=== PATIENT | female | born 1990 | race Caucasian/White ===

== ENCOUNTER → 2019-02-20 15:33 | Outpatient (BNVA) | payer OTHER, SELFPAY | PROVIDERS: Family Provider Family Medicine; PCP Family Medicine; Visit Provider Obstetrics & Gynecology | DX: O20.0 Threatened abortion (principal) | CPT/HCPCS: 36415; 84702 ==

== ENCOUNTER 2019-03-21 14:42 | Outpatient (CLI) | payer OTHER, SELFPAY ==
--- NOTE | 2019-03-21 | US_ITS ---
WS: [id number] TRANSABDOMINAL PELVIC AND TRANSVAGINAL PELVIC ULTRASOUND HISTORY: POSTCOITAL BLEEDING COMPARISON: None available. Uterus: 8.0 cm x 5.2 cm x 3.5 cm. Normal anteverted uterus. No fibroid or mass. Endometrium: 1.2 cm. Minimal heterogeneity of the central endometrium may be related to menses. Endoc ervical region is otherwise normal. Right ovary: 3.2 cm x 2.7 cm x 2.4 cm. Normal size and vascularity. Left ovary: 3.2 cm x 2.6 cm x 1.6 cm. Normal size and vascularity. Trace, physiologic free fluid. US/US pelvic with transvaginal IMPRESSION: Normal pelvic ultrasound.
== END 2019-03-21 14:43 | disposition home or self-care (01) ==
LOC: RADOUTREAD 03-22 14:50
PROVIDERS: Family Provider Family Medicine; PCP Family Medicine; Visit Provider Family Medicine
DX: Z76.89 Persons encountering health services in other specified circumstances (principal)

== ENCOUNTER → 2019-12-28 15:07 | Outpatient (BNVA) | payer OTHER, SELFPAY | PROVIDERS: Family Provider Family Medicine; PCP Family Medicine; Visit Provider Nurse Practitioner Family | DX: Z20.828 Contact with and (suspected) exposure to other viral communicable diseases (principal); J06.9 Acute upper respiratory infection, unspecified | CPT/HCPCS: 87635 ==

== ENCOUNTER 2020-06-24 17:23 | Outpatient (CLI) | payer OTHER, SELFPAY ==
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
== END 2020-06-24 17:24 | disposition home or self-care (01) ==
PROVIDERS: PCP Family Medicine; Visit Provider Nurse Practitioner
DX: M25.511 Pain in right shoulder (principal); M25.531 Pain in right wrist; M54.2 Cervicalgia
CPT/HCPCS: 72040; 73000; 73030; 73110

== ENCOUNTER → 2020-07-31 14:31 | Outpatient (BNVA) | payer OTHER, SELFPAY | PROVIDERS: PCP Family Medicine; Visit Provider Nurse Practitioner Women's Health | DX: N92.6 Irregular menstruation, unspecified (principal) | CPT/HCPCS: 81025 ==

== ENCOUNTER → 2020-09-04 13:08 | Outpatient (BNVA) | payer OTHER, SELFPAY | PROVIDERS: PCP Family Medicine; Visit Provider Obstetrics & Gynecology | DX: Z34.80 Encounter for supervision of other normal pregnancy, unspecified trimester (principal) | CPT/HCPCS: 80307; 82950; 84315; 84443; 85027; 86592; 86762; 86803; 86850; 86900; 87086; 87340 ==

== ENCOUNTER → 2020-09-25 13:02 | Outpatient (BNVA) | payer OTHER, SELFPAY | PROVIDERS: PCP Family Medicine; Visit Provider Obstetrics & Gynecology | DX: Z34.90 Encounter for supervision of normal pregnancy, unspecified, unspecified trimester (principal) | CPT/HCPCS: 84315; 87491; 87591; 88175 ==

== ENCOUNTER → 2021-01-14 09:49 | Outpatient (BNVA) | payer OTHER, SELFPAY | PROVIDERS: PCP Family Medicine; Visit Provider Obstetrics & Gynecology | DX: Z34.80 Encounter for supervision of other normal pregnancy, unspecified trimester (principal) | CPT/HCPCS: 82950; 84315; 85027 ==

== ENCOUNTER 2021-01-29 20:43 | Outpatient (CLI) | payer OTHER, SELFPAY ==
[2021-01-29] VITALS (25 sets, daily range): BP systolic 104–132; BP diastolic 68–85; PULSE 71–94; TEMP 36.6; O2SAT 96–100; BMI 48.4
--- NOTE | 2021-01-29 21:08 | USR_ITS ---
PROCEDURE INFORMATION: Exam: US Biophysical Profile Without Non-Stress Test Exam date and time: 01/29/2021 9:08 PM Age: 31 years old Clinical indication: Other: Maternal HTN; ; Additional info: Elevated blood pressures TECHNIQUE: Imaging protocol: US biophysical profile without non-stress testing. COMPARISON: US OB >= 14 weeks fetus [facility] 11/13/2020 8:57 AM FINDINGS: Gestation: Single live intrauterine gestation. heart rate: heart rate 151 bpm. Placenta: Posterior placenta. No previa identified. BIOPHYSICAL PROFILE: Breathin/2 Gross body movements: 2/2 tone: 2/2 Qualitative amniotic fluid: 2/2 Biophysical Profile Score: 8/8 MATERNAL ANATOMY: Cervix: Cervical length estimated 5.5 cm, measured transabdominally. Other findings: Breech position. US/US OB BPP wo NST 21224 IMPRESSION: 1. Biophysical profile score is 8/8. 2. Single live breech position intrauterine gestation.
[2021-01-29 21:43] LABS: Basophils % 0.1 %; Eosinophils # 0.1 10^3/uL (0.0-0.8); Eosinophils % 1.4 %; Hematocrit 33.2 % (37.0-47.0); Hemoglobin 11.3 g/dL (11.5-15.3); Lymphocytes # 1.6 10^3/uL (0.8-4.8); Lymphocytes % 19.9 %; Mean Corpuscular Hemoglobin 28.8 pg (28.0-34.0); Mean Corpuscular Volume 84.7 fl (81-99); Monocytes # 0.7 10^3/uL (0.2-0.9); Monocytes % 8.4 %; Neutrophils # 5.52 10^3/uL (1.8-7.7); Neutrophils % 69.6 %; Nucleated Red Blood Cells % 0 %; Platelet Count 190 10^3/cmm (130-400); Red Blood Count 3.92 10^6/uL (4.1-5.3); Red Cell Distribution Width 13.7 % (12.1-15.1); White Blood Count 7.9 10^3/uL (4.0-10.0)
[2021-01-29 21:56] LABS: Add Urine Microscopic? YES; Bilirubin Urine Neg (Negative); Blood Urine 2+ (Negative); Glucose Urine UA Norm (Normal); Ketones Urine Negative (Negative); Leukocyte Esterase Urine 1+ (Negative); Nitrate Urine Negative (Negative); Protein Urine Neg (Negative); Specific Gravity, Urine 1.015 (1.005-1.030); Urine Appearance Clear (CLEAR); Urine Color Yellow (Yellow); Urobilinogen Urine 1 mg/dL (Negative); pH Urine 7 (5-7)
[2021-01-29 22:01] LABS: Add Urine Culture? No; Alanine Aminotransferase 18 U/L (0-33); Albumin Level 3.5 g/dL (3.5-5.2); Alkaline Phosphatase 74 IU/L (35-105); Anion Gap 17.7 (5-19); Aspartate Amino Transferase 15 U/L (0-32); Bacteria Urine TRACE /hpf; Blood Urea Nitrogen 7 mg/dL (6-20); Carbon Dioxide 18 mmol/L (22-29); Chloride 103 mmol/L (98-107); Globulin 2.5 g/dL (1.3-4.6); Glomerular Filtration Rate 145.9 mL/min (90-130); Glucose 85 mg/dL (65-115); Osmolality Calculated 277 mOsm/kg (285-295); Potassium 3.7 mmol/L (3.5-5.1); Sodium 135 mmol/L (136-145); Total Bilirubin 0.6 mg/dL (0.15-1.2); Uric Acid 3.8 mg/dL (2.4-5.7)
[2021-01-29 22:02] LABS: Urine Creatinine 56 mg/dL (28-217); Urine Protein Random 7 mg/dL
[2021-01-29 22:04] LABS: UPRO/UCREAT Ratio 0.13 mg/mg CR
== END 2021-01-29 23:07 | disposition home or self-care (01) ==
LOC: OPOB 20:44 → OBGYN 20:45
PROVIDERS: PCP Family Medicine; Visit Provider Obstetrics & Gynecology
DX: O16.9 Unspecified maternal hypertension, unspecified trimester (principal); Z3A.00 Weeks of gestation of pregnancy not specified
CPT/HCPCS: 36415; 59025; 76819; 80053; 81001; 82570; 84156; 84315; 84550; 85025; 99211

== ENCOUNTER → 2021-02-06 10:44 | Outpatient (BNVA) | payer OTHER, SELFPAY | PROVIDERS: PCP Family Medicine; Visit Provider Nurse Practitioner Women's Health | DX: Z34.90 Encounter for supervision of normal pregnancy, unspecified, unspecified trimester (principal) | CPT/HCPCS: 76816; 84315 ==

== ENCOUNTER → 2021-02-19 10:15 | Outpatient (BNVA) | payer OTHER, SELFPAY | PROVIDERS: PCP Family Medicine; Visit Provider Obstetrics & Gynecology | DX: Z34.80 Encounter for supervision of other normal pregnancy, unspecified trimester (principal) | CPT/HCPCS: 80053; 82570; 84156; 84315; 84550; 85025 ==

== ENCOUNTER → 2021-02-26 14:36 | Outpatient (BNVA) | payer OTHER, SELFPAY | PROVIDERS: PCP Family Medicine; Visit Provider Obstetrics & Gynecology | DX: Z34.90 Encounter for supervision of normal pregnancy, unspecified, unspecified trimester (principal) | CPT/HCPCS: 84315; 87081 ==

== ENCOUNTER 2021-03-10 11:02 | Inpatient (IN) | payer OTHER, SELFPAY ==
[2021-03-10] VITALS (41 sets, daily range): BP systolic 107–139; BP diastolic 71–94; PULSE 73–97; RESP 16; TEMP 36.3–36.7; BMI 48.5
--- NOTE | 2021-03-10 09:29 | US_ITS ---
WS: [id number] BIOPHYSICAL PROFILE AMNIOTIC FLUID HISTORY: headache COMPARISON: 03/05/2021 Cardiac activity: 153 bpm. Cervix: closed. Placenta: Fundal and posterior, no previa or abruption. Placenta grade: 1. Parameters are as follows: Breathin Movement: 2 Tone: 2 Fluid volume: 2 Amniotic fluid index: 13.0 cm. Largest vertical pocket of amniotic fluid 4.2 cm. US/US OB BPP wo NST [id number] IMPRESSION: 1. Biophysical profile score: 8/8. 2. Normal amniotic fluid index.
[2021-03-10 10:00] LABS: Basophils % 0.2 %; Eosinophils # 0.1 10^3/uL (0.0-0.8); Eosinophils % 1.9 %; Hematocrit 35.7 % (37.0-47.0); Hemoglobin 11.9 g/dL (11.5-15.3); Lymphocytes # 1.2 10^3/uL (0.8-4.8); Mean Corpuscular HGB Conc 33.3 g/dL (30.0-36.0); Mean Corpuscular Hemoglobin 28.1 pg (28.0-34.0); Mean Corpuscular Volume 84.2 fl (81-99); Monocytes # 0.3 10^3/uL (0.2-0.9); Monocytes % 7.2 %; Neutrophils # 2.65 10^3/uL (1.8-7.7); Neutrophils % 61.8 %; Nucleated Red Blood Cells % 0 %; Platelet Count 165 10^3/cmm (130-400); Red Blood Count 4.24 10^6/uL (4.1-5.3); Red Cell Distribution Width 13.7 % (12.1-15.1); White Blood Count 4.3 10^3/uL (4.0-10.0)
[2021-03-10 10:22] LABS: Alanine Aminotransferase 29 U/L (0-33); Albumin Level 3.2 g/dL (3.5-5.2); Alkaline Phosphatase 111 IU/L (35-105); Aspartate Amino Transferase 25 U/L (0-32); Blood Urea Nitrogen 7 mg/dL (6-20); Calcium 8.4 mg/dL (8.5-10.5); Carbon Dioxide 17 mmol/L (22-29); Chloride 103 mmol/L (98-107); Globulin 2.7 g/dL (1.3-4.6); Glomerular Filtration Rate 145.9 mL/min (90-130); Glucose 102 mg/dL (65-115); Osmolality Calculated 276 mOsm/kg (285-295); Sodium 134 mmol/L (136-145); Total Bilirubin 0.4 mg/dL (0.15-1.2); Total Protein 5.9 g/dL (6.6-8.7)
[2021-03-10 10:48] LABS: Urine Creatinine 26 mg/dL (28-217); Urine Protein Random 8 mg/dL
[2021-03-10 10:51] LABS: UPRO/UCREAT Ratio 0.31 mg/mg CR
[2021-03-10] MEDS: dextrose 5%-lactated ringers 1,000 ML 125 ML IV (12:15)
[2021-03-10] MEDS: magnesium sulfate premix 4 GM/100 ML PREMIX IV (12:16)
[2021-03-10] MEDS: magnesium sulfate premix 20 GM/500 ML BAG IV ×2 (12:17→21:17)
[2021-03-10] MEDS: miSOPROStol 100 mcg tablet 25 MCG VAGINAL ×3 (13:00→23:00)
[2021-03-10] MEDS: acetaminophen 325 mg Tablet 650 MG PO (14:26)
[2021-03-10] MEDS: betamethasone susp 6 mg/mL 5 mL 12 MG IM (18:15)
[2021-03-10 18:48] LABS: Magnesium Level (OB Only) 4.3 mg/dL (5.0-7.5)
[2021-03-10] MEDS: promethazine 25 mg/mL SDV 1 mL IM (23:10)
[2021-03-10] MEDS: morphine 4 mg/mL SDV 1 mL 8 MG IM (23:11)
[2021-03-10 23:14] LABS: Magnesium Level (OB Only) 4.9 mg/dL (5.0-7.5)
[2021-03-11] VITALS (52 sets, daily range): BP systolic 108–176; BP diastolic 59–111; PULSE 69–96; RESP 18; TEMP 36.3–36.9
[2021-03-11] MEDS: dextrose 5%-lactated ringers 1,000 ML 75 ML IV (00:54)
[2021-03-11 01:16] LABS: Adenovirus Not Detected (NOT DETECT); Chlamydia Pneumoniae Not Detected (NOT DETECT); Coronavirus 229E,HKU1,NL63,OC4 Not Detected (NOT DETECT); Human Metapneumovirus Not Detected (NOT DETECT); Human Rhinovirus/Enterovirus Not Detected (NOT DETECT); Influenza A Not Detected (NOT DETECT); Influenza A H1 Not Detected (NOT DETECT); Influenza A H1-2009 Not Detected (NOT DETECT); Influenza A H3 Not Detected (NOT DETECT); Influenza B Not Detected (NOT DETECT); Mycoplasma Pneumoniae Not Detected (NOT DETECT); Parainfluenza Virus Type 1 Not Detected (NOT DETECT); Parainfluenza Virus Type 2 Not Detected (NOT DETECT); Parainfluenza Virus Type 3 Not Detected (NOT DETECT); Parainfluenza Virus Type 4 Not Detected (NOT DETECT); Respiratory Syncytial Virus A Not Detected (NOT DETECT); Respiratory Syncytial Virus B Not Detected (NOT DETECT); SARS-COV-2 Detected (NOT DETECT)
[2021-03-11 02:43] LABS: Magnesium Level (OB Only) 4.9 mg/dL (5.0-7.5)
[2021-03-11] MEDS: oxytocin 30 UNIT/500 ML BAG IV (05:35)
--- NOTE | 2021-03-11 06:27 | PM.OPHPUD ---
Labor & Delivery H&P Update Date of Procedure: March 11, 2021 Date H&P Performed: 03/10/21 Changes to previous documentation: Patient diagnosed preeclampsia based on a protein creatinine ratio of 0.31. Diagnosed with preeclampsia with severe features because of persistent headache despite Tylenol and this was diagnosed by Dr. Maddox and induction was started at 36 weeks and 5 days gestation. She did receive a dose of steroids. Admission Diagnosis:
[2021-03-11] MEDS: magnesium sulfate premix 20 GM/500 ML BAG IV ×3 (07:23→23:34)
[2021-03-11 07:25] LABS: Magnesium Level (OB Only) 5.4 mg/dL (5.0-7.5)
[2021-03-11] MEDS: fentaNYL 50 mcg/mL INJ 2mL 25 MCG IVP (13:48)
--- NOTE | 2021-03-11 17:01 | P.PN_ITS ---
Subjective Subjective: Interval history: Subjective- Ms. Lagos is a 31-year-old 3 para 1-0-1-1 at 36 weeks and 6 days. She was sent to labor and delivery after routine clinic visit on 03/10/2021 as she had reported a persistent headache that had not resolved despite Tylenol. She already had a diagnosis of gestational hypertension diagnosed at 34 weeks but did not have any severe features. Given her persistent headache was concerning for severe features she was sent to labor and delivery. Dr. Maddox who was on-call evaluated the patient and overall lab work was normal except for elevated protein creatinine ratio at 0.31 consistent with preeclampsia and given her headache was a severe symptom it was recommended by Dr. Maddox to have patient stay and get induced. Patient was placed on magnesium sulfate for seizure prophylaxis, Hirsch catheter was placed and SCD was placed. Magnesium was titrated until magnesium levels were in the therapeutic range. Induction was started with Cytotec the first dose placed at noon on 03/10/2021. Cervix was 1 cm, 40%, moderate and -3 to -4 station. tracing was category 1 and she had no contractions. With the first dose of Cytotec she did not make any cervical change and a second dose of Cytotec was placed at 5:30 PM on 03/10/2021. Covid testing was done and she was noted to be Covid positive and was placed on isolation. At 9:30 PM she had again not made any cervical change. She received a fourth dose of Cytotec vaginally. At 2 AM on 03/11/2021 she had made some cervical change to 2 cm 70% and -3 station and was having irregular contractions. She was observed for 2 hours and made some cervical change to 3 cm 75% but made no further cervical change. Contractions spaced out to every 5 to 7 minutes. She was started on Pitocin at 5:30 AM on 03/11/2021 for dose and was titrated to a maximum of 19 mIU. At 8:30 AM she was 4 cm 75% and -2 station. Artificial rupture of membranes was done at this time with clear fluid. Objective- Blood pressure--135/90 mmHg Pulse-83 beats per minute Temperature-98 Fahrenheit Abdomen-gravid, nontender, obese Sterile vaginal exam-4 cm, 75% -2 station-artificial rupture of membranes was performed-clear fluid EFM-145, moderate variability, accelerations present, no decelerations [place]-contractions every 3 to 5 minutes. Assessment: 31-year-old 3 para 1-0-1-1 at 36 weeks and 6 days Induction of labor for preeclampsia with severe features Covid positive GBS negative Morbid obesity with a BMI of 48.5 Anxiety and depression on medication Plan: Continue Pitocin. Repeat cervical exam in 2 hours. Pain medication as needed Continuous EFM and tocometry Continue SCDs for DVT prophylaxis Continue magnesium for seizure prophylaxis with magnesium level every 6 hours Covid positive-isolation precautions Vitals/I&O/Wt Last Vital Signs Temp 97.4 F L 03/10/21 14:28 Pulse 80 03/11/21 16:31 Resp 18 03/11/21 13:48 BP 148/93 03/11/21 16:31 03/11/21 03/11/21 03/11/21 06:59 14:59 22:59 Intake Total 185.667 / 1635.667 500 / 500 500 / 1000 Output Total 2350 / 5370 1435 / 1435 Balance -2164.333 / -3734.333 -935 / -935 500 / -435 Weight last 48 hrs Weight 310 lb Weight 310 lb Physical Exam Urinary Catheter Management: Hirsch: Cath Placed During This Visit: yes Reason for Continuing Indwelling Catheter: Required Immobilization for Trauma or Surgery or Anesthesia Urinary Catheter Date of Insertion: 03/10/21 Urinary Catheter Time of Insertion: 12:40 Data : 03/10/21 09:45 03/10/21 09:45 Attestations Medical Necessity Statement*: Patient will need to stay for 1-2 more midnights for delivery and recovery Coding Level of Care Code Acute Cash Application Representative for Quan Rayna
[2021-03-11] MEDS: ampicillin 2,000 MG in sodium chloride 0.9% (plus) 50 ML 100 MG IV (17:51)
[2021-03-11] MEDS: labetalol 5 mg/mL SDV 20mL 20 MG IVP (17:51)
[2021-03-11] MEDS: fentaNYL 50 mcg/mL INJ 2mL IVP (17:52)
[2021-03-11] MEDS: dextrose 5%-lactated ringers 1,000 ML 62.5 ML IV (19:20)
[2021-03-11] MEDS: betamethasone susp 6 mg/mL 5 mL 12 MG IM (19:22)
[2021-03-11 20:26] LABS: Magnesium Level (OB Only) 6.3 mg/dL (5.0-7.5)
[2021-03-11] MEDS: ampicillin 1,000 MG in sodium chloride 0.9% (plus) 50 ML 100 MG IV (21:50)
[2021-03-12] VITALS (90 sets, daily range): BP systolic 120–185; BP diastolic 60–104; PULSE 66–102; RESP 16–17; TEMP 36.7–37.1; O2SAT 98–100
[2021-03-12] MEDS: ampicillin 1,000 MG in sodium chloride 0.9% (plus) 50 ML 100 MG IV ×5 (02:01→17:58)
[2021-03-12 03:02] LABS: Magnesium Level (OB Only) 6.7 mg/dL (5.0-7.5)
[2021-03-12] MEDS: oxytocin 30 UNIT/500 ML BAG IV (06:55)
[2021-03-12] MEDS: magnesium sulfate premix 20 GM/500 ML BAG IV ×2 (07:47→15:54)
[2021-03-12 08:43] LABS: Magnesium Level (OB Only) 7.1 mg/dL (5.0-7.5)
[2021-03-12] MEDS: fentaNYL 50 mcg/mL INJ 2mL IVP (13:42)
[2021-03-12 15:07] LABS: Magnesium Level (OB Only) 6.5 mg/dL (5.0-7.5)
--- NOTE | 2021-03-12 16:07 | ANES.PREANE2 ---
Pre-Anesthetic Assessment Height/Weight: Height 1.7 m Weight 140.614 kg Temp Pulse Resp BP 98.1 F 91 17 133/95 03/12/21 06:05 03/12/21 15:42 03/12/21 13:42 03/12/21 15:42 Was Beta Zhang taken within 24 hours: N/A Was Clonidine taken within 24 hours: N/A Social No alcohol and No tobacco Exam alert, oriented x 3, clear to auscultation bilaterally and regular rate & rhythm Airway Submandibular: within normal limits Cervical ROM: within normal limits Mallampati: Class I Dentition: full Pulmonary None reported CV/HEM Pre eclampsia on magnesium None reported Hepatic None reported GI None reported Metabolic Morbid Obesity Musc/skel None reported Neuropsych Anxiety Anesthetic Plan ASA status: 3 (Morbidly obese female with severe pre eclampsia) Anesthesia: Anesthesia Evaluation, Eval. for regional block and Regional (specify below) Risk of > 500 ml blood loss (7ml/kg in children): No Medications/Allergies Home Medications Medication Instructions Recorded Confirmed Last Taken Type prenat.vits,duong,urm-oaqh-yvaoc 1 tab PO DAILY 07/31/20 03/10/21 01/29/21 08:00 History fluoxetine 20 mg capsule (Prozac) 20 mg PO DAILY #30 cap 02/19/21 03/10/21 Unknown Rx Allergies Allergy/AdvReac Type Severity Reaction Status Date / Time latex Allergy heat rash Verified 03/10/21 08:26 Current Medications Generic Name Dose Route Start Last Admin Trade Name Freq PRN Reason Stop Dose Admin Acetaminophen 650 mg 03/10/21 11:20 03/10/21 14:26 Acetaminophen 325 Mg Tablet PO 650 mg Q6H PRN Administration Mild pain or temp > 100.4 Fentanyl 25 - 100 mcg 03/11/21 17:32 03/12/21 13:42 Fentanyl 50 Mcg/Ml Inj 2ml IVP 50 mcg Q1H PRN Administration SEVERE PAIN Dextrose/Lactated Ringer's 1,000 mls @ 125 mls/hr 03/10/21 11:30 03/12/21 14:12 Dextrose 5%-Lactated Ringers IV Not Given .Q8H DEBBIE Magnesium Sulfate 20 gm in 500 mls @ 50 mls/hr 03/10/21 11:30 03/12/21 15:54 Magnesium Sulfate Premix IV 62.5 mls/hr .Q10H DEBBIE Administration Ampicillin Sodium 1,000 mg/ 50 mls @ 100 mls/hr 03/11/21 21:45 03/12/21 13:43 Sodium Chloride IV 100 mls/hr Q4H DEBBIE Administration Protocol Oxytocin 30 unit in 500 mls @ 1 mls/hr 03/12/21 07:00 03/12/21 15:30 Pitocin IV 23 milliunit/min .Q24H DEBBIE 23 mls/hr Titration Protocol 1 MILLIUNIT/MIN Labetalol HCl 20 mg 03/10/21 11:20 03/11/21 17:51 Labetalol 5 Mg/Ml Sdv 20ml IVP 20 mg PRN PRN Administration HYPERTENSION Protocol Misoprostol 25 mcg 03/10/21 12:50 03/10/21 23:00 Misoprostol 100 Mcg Tablet VAGINAL 25 mcg ONCE PRN Administration Induction Misoprostol 25 mcg 03/10/21 17:12 03/10/21 17:22 Misoprostol 100 Mcg Tablet VAGINAL 25 mcg Q4H PRN Administration Induction PFSH Anesthesia Medical History Anxiety and depression Was on fluoxetine with her in 2016. Reports being on Pristique from 2019 until May 2020 when she discontinued the medication. This was managed by her primary care provider. She does not have a therapist. No pertinent past medical history Denies diabetes, asthma, hypertension, seizures, DVT/PE PCP: Dr. Nguyen Surgical History No pertinent past surgical history Family History Grandmother Breast cancer Maternal--dx age 40's Ovarian cancer Maternal--dx age late 50's Father Hypercholesteremia Mother Ovarian cancer dx age 42 Denies family history of Colon cancer Diabetes Heart disease Hypertension Uterine cancer Thyroid disease Stroke Female Reproductive History : 3 Data Anesthesia : 03/10/21 09:45 03/10/21 09:45 COVID Results 03/10/21 23:16 Coronavirus 229E (PCR) Not detected SARS-CoV-2 (PCR) Detected A Cardiac Studies: No Data to Display
--- NOTE | 2021-03-12 17:05 | ANES.PROC ---
Anesthesia Procedures Procedure/Date: 03/12/21 Epidural: Time Out Performed: Yes ([id number]) Consents Signed: Procedure Consent Consent: from patient Lumbar Level: L3-L4 Epidural position: sitting Epidural procedure: sterile prep of area, 1% lidocaine to numb the area, 18 g needle, neg for paresthesia, test dose given, 1.5% xylocaine 1:200k epi, 0.2% Ropivacaine bolus ml, placed PCEA, no systemic response, sterile dressing applied and 0.2% Ropiavacaine @ mls/hr (13) Additional Comments: Patient sitting, time out. Prepped draped usual fashion. LA infiltration skin wheel. Touhy inserted with stylet. Using SARAH technique w/ saline space found. Catheter threaded. Positive aspiration. Catheter and Tuohy removed intact. Catheter flushed with sterile saline. Same site, Tuohy inserted with stylet. Using SARAH epidural space encountered at 7.5 cm, catheter threaded to 14 cm. Negative aspiration, negative test dose. Tolerated well.
[2021-03-12] MEDS: miSOPROStol 200 mcg Tablet 800 MCG PR (18:44)
--- NOTE | 2021-03-12 19:05 | P.PCNOB_ITS ---
Delivery Note: Date of delivery: March 12, 2021 Pre-delivery diagnoses: Term . Gestational hypertension. Post-delivery diagnoses: Term delivered. Gestational hypertension. hemorrhage. Procedure: Spontaneous vaginal delivery Delivering Physician: Tobi Brown MD Estimated blood loss (mL): 1,000 Pre-Delivery Course: Ms. Lagos is a 31-year-old 3 para 1-0-1-1 at 36 weeks and 6 days.? Admitted to labor and delivery for induction due to preeclampsia with severe features. Cytotec was given for cervical ripening, and follow-up with oxytocin. She had a slow progression and oxytocin was stopped overnight and restarted the following morning. Then she had a adequate progression of labor. Delivery: The patient was noted to be complete and pushing, so was placed in the dorsal lithotomy position, prepped and draped in the usual sterile fashion for a vaginal delivery. Pt. Noted to have epidural anesthesia. The patient delivered a viable term female weighing 2585 g with scores of 8 and 9 at one and five minutes, respectively. The vertex was delivered spontaneously over an intact perineum. The patient was asked to push and the head delivered spontaneously in the occipitus posterior position, over an intact perineum. A nuchal cord was checked and none noted. The anterior shoulder delivered easily and the posterior shoulder followed. The remainder of the was easily delivered and the oropharynx and nasopharynx was bulb suctioned. The infant was noted to have spontaneous cry and spontaneous movement of all four extremities. The cord was clamped x 2 and cut and noted to have 2 arteries and one vein. The infant was passed to the mother's abdomen where nursing personnel were in attendance. Cord blood sample was then obtained. The placenta delivered intact spontaneously and the uterus was explored. 20 units of Pitocin was placed in the IV bag to firm the uterus. Examination of the cervix and vaginal vault did not reveal any lacerations. A vaginal pack was then placed. Patient continued with significant bleeding and 800 mcg misoprostol were given intrarectally. Examination of the perineum showed a second-degree laceration. The laceration was repaired with 2-0 Vicryl and 3-0 Vicryl in the normal fashion in a running non locking fashion to reapproximate the laceration in layers. Bleeding from the suture line was also noted and tranexamic acid was also given. The vaginal pack was then removed. The patient tolerated this procedure well, and recovered in L&D with her in their LDR room. All sponge and needle counts were correct. 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
[2021-03-12] MEDS: oxytocin 30 UNIT/500 ML BAG 600 UNIT IV (19:29)
[2021-03-12 21:18] LABS: Basophils % 0.2 %; Hematocrit 34.5 % (37.0-47.0); Hemoglobin 11.5 g/dL (11.5-15.3); Lymphocytes # 0.7 10^3/uL (0.8-4.8); Mean Corpuscular HGB Conc 33.3 g/dL (30.0-36.0); Mean Corpuscular Volume 86.9 fl (81-99); Monocytes # 0.5 10^3/uL (0.2-0.9); Monocytes % 4.1 %; Neutrophils # 10.89 10^3/uL (1.8-7.7); Neutrophils % 88.3 %; Nucleated Red Blood Cells % 0 %; Platelet Count 243 10^3/cmm (130-400); Red Blood Count 3.97 10^6/uL (4.1-5.3); Red Cell Distribution Width 13.9 % (12.1-15.1); White Blood Count 12.3 10^3/uL (4.0-10.0)
[2021-03-12 21:41] LABS: Magnesium Level (OB Only) 7.1 mg/dL (5.0-7.5)
[2021-03-12] MEDS: ibuprofen 800 mg tablet PO (22:37)
[2021-03-12] MEDS: HYDROcodone-acetaminophen 5-325 mg Tablet PO (22:37)
[2021-03-13] VITALS (74 sets, daily range): BP systolic 111–160; BP diastolic 55–101; PULSE 64–162; RESP 17; TEMP 36.3–36.9
[2021-03-13] MEDS: magnesium sulfate premix 20 GM/500 ML BAG IV ×2 (00:45→10:33)
[2021-03-13 03:32] LABS: Magnesium Level (OB Only) 6.6 mg/dL (5.0-7.5)
[2021-03-13] MEDS: dextrose 5%-lactated ringers 1,000 ML 125 ML IV (06:50)
[2021-03-13] MEDS: docusate sodium 100 mg Capsule PO ×2 (09:19→17:26)
[2021-03-13] MEDS: ibuprofen 800 mg tablet PO ×3 (09:19→21:35)
[2021-03-13] MEDS: prenatal vitamin Capsule 1 CAP PO (09:19)
[2021-03-13 10:53] LABS: Magnesium Level (OB Only) 6.8 mg/dL (5.0-7.5)
[2021-03-13 11:34] LABS: Hematocrit 29.6 % (37.0-47.0); Hemoglobin 10.1 g/dL (11.5-15.3); Mean Corpuscular HGB Conc 34.1 g/dL (30.0-36.0); Mean Corpuscular Hemoglobin 28.5 pg (28.0-34.0); Mean Corpuscular Volume 83.6 fl (81-99); Mean Platelet Volume 9.9 fL (7.4-10.4); Platelet Count 206 10^3/cmm (130-400); Red Blood Count 3.54 10^6/uL (4.1-5.3); Red Cell Distribution Width 14.2 % (12.1-15.1); White Blood Count 7.7 10^3/uL (4.0-10.0)
[2021-03-13 16:23] LABS: Magnesium Level (OB Only) 6.7 mg/dL (5.0-7.5)
[2021-03-13] MEDS: dextrose 5%-lactated ringers 1,000 ML 63 ML IV (20:58)
[2021-03-13 22:05] LABS: Magnesium Level (OB Only) 5.4 mg/dL (5.0-7.5)
[2021-03-14 04:20] VITALS: BP 140/67; PULSE 72; TEMP 36.2
--- NOTE | 2021-03-14 07:52 | PC.NURSE ---
1045 03/13/21 UNABLE TO DRAW BLOOD OFF IV SITE,IV REMOVED WITH CATH INTACT.
--- NOTE | 2021-03-14 08:21 | P.DS_ITS ---
Discharge Providers CLINICAL PSYCHOLOGIST LICENSED Date of Admission: 03/10/21 11:02 Date of Discharge: 03/14/21 Attending Provider at Admission: Dr. Gutiérrez Attending Provider at Discharge: Tobi Brown MD Primary CLINICAL PSYCHOLOGIST LICENSED: Dr. Gutiérrez Primary Care Provider: Gabriele Nguyen MD Diagnoses at Discharge Discharge Diagnosis (1) Term delivered: Status: Acute (2) Gestational hypertension: Status: Acute Reason for Visit Reason for Visit: headache Brief History: Mrs. Lagos 31-year-old female with term admitted for induction due to gestational hypertension Hospital Course Hospital Course Mrs. Lagos 31-year-old female admitted to labor and delivery due to gestational hypertension. Upon admission she refused to be in attendance by the prior provider concrete curer from the practice. She never had met the provider or have had any prior interactions with the provider. She was asked if she was firing our practice, but her reply was that she does not want to be seen old being taken care of by the provider concrete curer. She was also reminded of practice policy regarding delivery by the provider concrete curer from the practice. She was tarted on oxytocin by primary OB provider She progress slowly/without adequate contractions and oxytocin was discontinue overnight and restarted the following morning, then she received an epidural anesthesia and she progressed adequately to have a spontaneous vaginal delivery without complications. Magnesium sulfate was continued for an additional 24 hours for seizure prophylaxis. Then she had adequate diuresis. observation was uneventful. She is afebrile and hemodynamically stable. Tolerating diet well. Ambulating without difficulty. Passing flatus. Instructed to follow-up with Dr. Gutiérrez at the 6-week visit. Information Peripartum Data: Infant Delivery Method: Vaginal Physical Exam Narrative: EXAM NARRATIVE: GA; alert and oriented x 3 HEENT: normal Breasts: engorged Nipples - skin intact Lungs; clear to auscultation Heart: regular rhythm, no murmurs. Abd: Appropriately tender. BS+. Uterine fundus below umbilicus. No Fundal Tenderness. Perineum: normal lochia. Extremities: no edema, no cyanosis, no tenderness. Urinary Catheter Management: Hirsch: Cath Placed During This Visit: yes, but has since been removed by the nurse Reason for Continuing Indwelling Catheter: Decision to DC Catheter Urinary Catheter Date of Insertion: 03/12/21 Urinary Catheter Time of Insertion: 19:10 Date Urinary Catheter Removed: 03/13/21 Time Urinary Catheter Discontinued: 19:45 History History History 3 Term 1 Miscarriages/Ectopic 1 0 Living Children 1 Discharge Data Studies Completed and Pending Completed Studies During Hospitalization Category Date Time Status US OB BPP wo NST 27753 Routine Ultrasound 03/10/21 09:29 Completed Radiology Impressions Obstetrics US/Biophysical Profile 03/10/21 09:29 IMPRESSION: 1. Biophysical profile score: 8/8. 2. Normal amniotic fluid index. Laboratory Results WBC 7.7 10^3/uL (4.0-10.0) 03/13/21 10:45 Corrected WBC Cancelled 03/13/21 08:45 RBC 3.54 10^6/uL (4.1-5.3) L 03/13/21 10:45 Hgb 10.1 g/dL (11.5-15.3) L 03/13/21 10:45 Hct 29.6 % (37.0-47.0) L 03/13/21 10:45 MCV 83.6 fl (81-99) 03/13/21 10:45 MCH 28.5 pg (28.0-34.0) 03/13/21 10:45 MCHC 34.1 g/dL (30.0-36.0) 03/13/21 10:45 RDW 14.2 % (12.1-15.1) 03/13/21 10:45 Plt Count 206 10^3/cmm (130-400) 03/13/21 10:45 MPV 9.9 fL (7.4-10.4) 03/13/21 10:45 Neut % (Auto) 88.3 % 03/12/21 20:15 Lymph % (Auto) 6.0 % 03/12/21 20:15 Vance % (Auto) 4.1 % 03/12/21 20:15 Eos % (Auto) 0.0 % 03/12/21 20:15 Baso % (Auto) 0.2 % 03/12/21 20:15 Neut # (Auto) 10.89 10^3/uL (1.8-7.7) H 03/12/21 20:15 Lymph # (Auto) 0.7 10^3/uL (0.8-4.8) L 03/12/21 20:15 Vance # (Auto) 0.5 10^3/uL (0.2-0.9) 03/12/21 20:15 Eos # (Auto) 0.0 10^3/uL (0.0-0.8) 03/12/21 20:15 Baso # (Auto) 0.0 10^3/uL (0.0-0.1) 03/12/21 20:15 Nucleated RBC % (auto) 0 % 03/12/21 20:15 Nucleated RBCs # 0.0 /100WBC 03/12/21 20:15 Sodium 134 mmol/L (136-145) L 03/10/21 09:45 Potassium 4.0 mmol/L (3.5-5.1) 03/10/21 09:45 Chloride 103 mmol/L (98-107) 03/10/21 09:45 Carbon Dioxide 17 mmol/L (22-29) L 03/10/21 09:45 Anion Gap 18.0 (5-19) 03/10/21 09:45 BUN 7 mg/dL (6-20) 03/10/21 09:45 Creatinine 0.5 mg/dL (0.5-0.9) 03/10/21 09:45 GFR Calculation 145.9 mL/min (90-130) H 03/10/21 09:45 Glucose 102 mg/dL (65-115) 03/10/21 09:45 Calculated Osmolality 276 mOsm/kg (285-295) L 03/10/21 09:45 Calcium 8.4 mg/dL (8.5-10.5) L 03/10/21 09:45 Magnesium 5.4 mg/dL (5.0-7.5) 03/13/21 21:35 Total Bilirubin 0.4 mg/dL (0.15-1.2) 03/10/21 09:45 AST 25 U/L (0-32) 03/10/21 09:45 ALT 29 U/L (0-33) 03/10/21 09:45 Alkaline Phosphatase 111 IU/L (35-105) H 03/10/21 09:45 Total Protein 5.9 g/dL (6.6-8.7) L 03/10/21 09:45 Albumin 3.2 g/dL (3.5-5.2) L 03/10/21 09:45 Globulin 2.7 g/dL (1.3-4.6) 03/10/21 09:45 U Random Total Protein 8 mg/dL 03/10/21 10:20 Urine Creatinine 26 mg/dL (28-217) L 03/10/21 10:20 Protein/Creatinin Ratio 0.31 mg/mg CR 03/10/21 10:20 Coronavirus 229E (PCR) Not detected (NOT DETECT) 03/10/21 23:16 SARS-CoV-2 (PCR) Detected (NOT DETECT) A 03/10/21 23:16 Vitals Last Vital Signs Temp 97.2 F L 03/14/21 04:20 Pulse 72 03/14/21 04:20 Resp 17 03/13/21 17:30 BP 140/67 03/14/21 04:20 Pulse Ox 98 03/12/21 16:37 Discharge Plan Discharge Patient Disposition: Home Condition: Stable Prescriptions: New acetaminophen 325 mg capsule 325 mg PO Q4H PRN (Reason: fever or pain) Qty: 60 0RF docusate sodium [Colace] 100 mg capsule 100 mg PO BID Qty: 30 0RF ferrous sulfate [Iron (ferrous sulfate)] 325 mg (65 mg iron) tablet 325 mg PO BID Qty: 60 0RF ibuprofen 800 mg tablet 800 mg PO TID PRN (Reason: pain) Qty: 60 0RF Continued prenat.vits,duong,dqa-ksar-trnco Tablet 1 tab PO DAILY 0RF fluoxetine [Prozac] 20 mg capsule 20 mg PO DAILY Qty: 30 3RF Discharge Orders: Discharge Order (Routine); Ordered 03/14/21 Ordered By: Tobi Brown Referrals: Dangelo Celeste MD [Physician] - 6 Weeks Discharge Diet: Regular Discharge Activity: Limit activity as instructed Patient Instructions: Opioid Safety, Hypertension During (GEN), Vaginal Delivery (GEN) Activity Restrictions/Additional Instructions: 1. Please call [facility] on next working day to make your appointment in [address] gutiérrez. 2. Please stay home until you come back to the clinic on first post-operative check up. 3. Please follow instructions on your medications CAREFULLY. 4. If you have abdominal incision, do not cover it unless dressing is necessary because of drainage. OK to shower, but avoid bath. Leave steri-strips until they fall off. If they are still on one week after surgery, you may remove them. 5. If you had vaginal surgery or vaginal repair, Dr. Brown may instruct you to take SITZ bath. 6. Yellow, blood tinged odorous vaginal discharge is usually normal after hysterectomy or vaginal surgeries. 7. No sexual intercourse, tampons, or douches until you are completely released from the post-operative care. 8. Avoid constipation by eating right and maybe using some Metamucil or Milk of Magnesia. 9. All prescription refills are given during the working hours. Please do no wait till it runs out. Call the clinic at [phone] before your medication runs out. The clinic will get in touch with your doctor to prescribe medications if necessary. 10. Please remain within 40 mile radius from our hospital because emergencies do happen now and then during the post-operative period. 11. If you have stairs at home, take one step at a time slowly and minimize the number of trips. It helps to stay in one floor for the next few days. No lifting except what you can lift by one hand until you are released from the post-operative care. 12. Driving is discouraged until you are well healed. It may be 3-4 weeks before you feel strong enough to drive. You should be able to turn and look through the rear window without pain and you should be able to push the brake pedal very hard without pain before you drive. No fast rules, but SAFETY should be your primary concern. DO NOT drive if you are on sedating medications such as narcotics. 13. Call the clinic (during working hours) to make urgent appointment or go to the Emergency room, if any of the following occurs: i. Vaginal bleeding becomes heavy, more than a period. ii. Incision becomes red and sore, or drains pus. iii. Your temperature is over 100.4 or you have chill. iv. IV site becomes red and swollen (a little ``knot?? is usually OK) v. Persistent nausea and vomiting vi. Persistent constipation or diarrhea vii. Rash or allergic reaction to medications. Discharge Attestations CLINICAL PSYCHOLOGIST LICENSED Time Spent in Discharge Care*: greater than 30 min Coding Level of Care Code Acute Supervisor Advertising Dispatch Clerks for Chg Fwd Diagnoses Term delivered O80 Gestational hypertension O13.9
[2021-03-14] MEDS: prenatal vitamin Capsule 1 CAP PO (09:26)
[2021-03-14] MEDS: ibuprofen 800 mg tablet PO (09:26)
[2021-03-14] MEDS: docusate sodium 100 mg Capsule PO (09:26)
[2021-03-14 09:45] VITALS: BP 157/78; PULSE 88; RESP 17; TEMP 36.9
[2021-03-14 10:00] VITALS: BP 157/78; PULSE 88; RESP 17; TEMP 36.9
== END 2021-03-14 10:00 | disposition home or self-care (01) | DRG 805 ==
LOC: OPOB 11:03 → OBGYN 11:03
PROVIDERS: Anesthesiology; Obstetrics & Gynecology; Admitting Provider Obstetrics & Gynecology; PCP Family Medicine; Visit Provider Obstetrics & Gynecology
DX: O14.14 Severe pre-eclampsia complicating childbirth (principal); U07.1 COVID-19; Z37.0 Single live birth; O98.52 Other viral diseases complicating childbirth; O70.1 Second degree perineal laceration during delivery; O72.1 Other immediate postpartum hemorrhage; O99.214 Obesity complicating childbirth; E66.01 Morbid (severe) obesity due to excess calories; O99.344 Other mental disorders complicating childbirth; F41.9 Anxiety disorder, unspecified; F32.A Depression, unspecified; Z3A.36 36 weeks gestation of pregnancy
CPT/HCPCS: 36415; 51702; 59025; 59409; 76819; 80053; 82570; 83735; 84156; 84315; 85025; 85027; 87635; 96372; 99211; J0290; J0702; J2270; J2550; J2795; J3010; J3475; J3490